=== PATIENT | female | born 1975 | race African-American/Black ===

== ENCOUNTER 2019-07-31 00:07 | Emergency (ER) | payer OTHER ==
[~2019-07-31] VITALS: Ht 167.6 cm; Wt 75.0 kg
[2019-07-31] MEDS ORDERED: LIDOCAINE-MPF 1%, 5ML ONE (00:48)
[2019-07-31] MEDS ORDERED: HYDROcodone/APAP 5/325 TABLET ONE (01:09)
[2019-07-31] MEDS ORDERED: PENICILLIN VK 500MG TABLET ONE (01:12)
[2019-07-31] MEDS ORDERED: HYDROcodone/APAP 5/325 TABLET PO ONE (01:30)
[2019-07-31] MEDS ORDERED: PENICILLIN VK 500MG TABLET PO SCH (01:30)
[2019-07-31 01:49] VITALS: BP 138/74
== END 2019-07-31 01:51 | disposition home or self-care (01) ==
LOC: ED 01:17
DX: K04.6 Periapical abscess with sinus (principal); Z87.891 Personal history of nicotine dependence
CPT/HCPCS: 41800; 99283